=== PATIENT | female | born 1955 | race Caucasian/White ===

== ENCOUNTER 2020-06-23 11:15 | Emergency (ER) | payer OTHER ==
[2020-06-23 11:24] VITALS: BP 142/71; PULSE 98; TEMP 98.4; BMI 31.2
[2020-06-23] MEDS ORDERED: KETOROLAC TROMETHAMINE 60 MG/2 ML VIAL IM ONE (11:47)
[2020-06-23] MEDS ORDERED: KETOROLAC TROMETHAMINE 60 MG/2 ML VIAL ONE (12:08)
--- NOTE | 2020-06-23 12:30 | PDOC ---
History of Present Illness - General Chief Complaint: Back Pain Stated Complaint: LOWER BACK PAIN Time Seen by Provider: 06/23/20 11:40 - History of Present Illness Initial Comments: 06/23/20 12:28 64-year-old female with a past medical history of hypothyroidism presents for evaluation of mid back pain x3 days no systemic or radicular symptoms. No loss of bowel bladder function or saddle paresthesias. Past History - Medical History Allergies/Adverse Reactions: Allergies Allergy/AdvReac Type Severity Reaction Status Date / Time No Known Drug Allergies Allergy Verified 06/23/20 11:24 Home Medications: Ambulatory Orders Levothyroxine [Synthroid -] 100 mg PO DAILY 07/12/12 Apremilast [Otezla] 30 mg PO BID 02/14/16 Cetirizine HCl 10 mg PO ASDIR 02/14/16 Multivitamins [Multivit ([facility])] 1 tab PO DAILY 02/14/16 Aspirin [ASA -] 325 mg PO DAILY@0800 tablet 02/16/16 Hydrocodone/Acetaminophen [Hydrocodone-Acetamin 7.5-325] 1 each PO Q6H #60 tablet MDD 4 02/16/16 Cyclobenzaprine HCl [Flexeril 10 mg] 10 mg PO HS PRN #10 tablet 06/23/20 Ibuprofen [Motrin -] 600 mg PO TID #30 tablet 06/23/20 Anemia: No Asthma: No Cancer: No Cardiac Disorders: No CVA: No COPD: No CHF: No Dementia: No Diabetes: No GI Disorders: No Disorders: No HTN: No Hypercholesterolemia: No Liver Disease: No Seizures: No Thyroid Disease: Yes (HYPO) - Surgical History Abdominal Surgery: No Appendectomy: No Cardiac Surgery: No Cholecystectomy: Yes Lung Surgery: No Neurologic Surgery: No Orthopedic Surgery: No - Reproductive History Is Patient Now?: No - Psycho-Social/Smoking History Smoking Status: No Smoking History: Never smoked Have you smoked in the past 12 months: No Number of Cigarettes Smoked Daily: 0 If you are a former smoker, when did you quit?: 18 YRS AGO Information on smoking cessation initiated: No - Substance Abuse Hx (Audit-C & DAST Scrn) How often the patient has a drink containing alcohol: Never Score: In Men: 4 or > Positive; In Women: 3 or > Positive: 0 Screen Result (Pos requires Nsg. Audit-10AR): Negative In the last yr the pt used illegal drug/Rx for NonMed reason: No Score: Yes response is considered Positive: 0 Screen Result (Positive result requires Nsg. DAST-10): Negative Review of Systems - Review of Systems Musculoskeletal: Yes: Back Pain *Physical Exam - Vital Signs Last Vital Signs Temp Pulse Resp BP Pulse Ox 98.4 F 98 H 17 142/71 97 06/23/20 11:21 06/23/20 11:21 06/23/20 11:21 06/23/20 11:21 06/23/20 11:21 - Physical Exam 06/23/20 12:28 No midline tenderness about the thoracic or lumbar spine. Mild bilateral parathoracic musculature spasm. Mild bilateral paralumbar musculature spasm. 5 out of 5 strength bilateral upper and lower extremities without gross sensorimotor deficits neurovascular intact normal skin color and temperature. ED Treatment Course - Medications Given in the ED: ED Medications Discontinued Medications Generic Name Dose Route Start Last Admin Trade Name Freq PRN Reason Stop Dose Admin Ketorolac Tromethamine 60 mg 06/23/20 11:47 06/23/20 12:10 Toradol Injection - IM 06/23/20 11:48 60 mg ONCE ONE Administration Medical Decision Making - Medical Decision Making 06/23/20 12:28 Pain relieved with Toradol. Motrin starts tomorrow prescription strength Flexeril start tonight follow-up with Ortho I have reviewed the pathophysiology with the patient. They are in agreement with the treatment plan all questions were answered to their satisfaction. Understanding for follow-up without fail was also conveyed to the patient. Again they are in agreement. Discharge - Discharge Information Problems reviewed: Yes Clinical Impression/Diagnosis: Strain of mid-back Condition: Improved Disposition: HOME - Admission No - Additional Discharge Information Prescriptions: Cyclobenzaprine HCl [Flexeril 10 mg] 10 mg PO HS PRN #10 tablet PRN Reason: Muscle Spasms Ibuprofen [Motrin -] 600 mg PO TID #30 tablet - Follow up/Referral Referrals: Yaima Toribio MD [Primary Care Provider] - José Miguel Rivas DO [Staff Physician] - - Patient Discharge Instructions Additional Instructions: Please start the Motrin tomorrow. You were given an injection of a long-acting anti-inflammatory medication in the emergency room do not start the Motrin today. Flexeril is a muscle relaxer is 1 tablet before bedtime it will make you sleepy. You may take that medicine starting this evening. Return to the emergency room for worsening symptoms and without fail follow-up with orthopedic surgery in 1 to 2 days for further evaluation and treatment options. No work until cleared by orthopedic surgery as you requested. - Post Discharge Activity Work/Back to School Note: Back to Work
== END 2020-06-23 12:44 | disposition home or self-care (01) ==
LOC: JERFT 11:15
PROC: 3E0233Z Introduction of Anti-inflammatory into Muscle, Percutaneous Approach (ICD-10-PCS; principal; 2020-06-23)
DX: S29.019A Strain of muscle and tendon of unspecified wall of thorax, initial encounter (principal)
CPT/HCPCS: 99284-25

== ENCOUNTER 2023-04-12 09:55 | Emergency (ER) | payer OTHER ==
[2023-04-12 10:04] VITALS: BP 126/77; PULSE 95; RESP 18; TEMP 98.3; BMI 27.3
[2023-04-12] MEDS ORDERED: ACETAMINOPHEN 500 MG TABLET (FP) PO ONE (11:21)
[2023-04-12] MEDS ORDERED: ACETAMINOPHEN 500 MG TABLET (FP) ONE (11:24)
== END 2023-04-12 12:16 | disposition home or self-care (01) ==
LOC: JERFT 09:55
DX: R05.9 Cough, unspecified (principal); R09.81 Nasal congestion; R50.9 Fever, unspecified; M79.10 Myalgia, unspecified site; U07.1 COVID-19; J06.9 Acute upper respiratory infection, unspecified
CPT/HCPCS: 0241U-QW; 71046-TC-FY; 99284-25